=== PATIENT | female | born 1955 | race Caucasian/White ===

== ENCOUNTER 2022-01-31 10:45 | Inpatient (IN) | payer OTHER ==
[2022-01-31] MEDS ORDERED: LEVALBUTEROL 1.25 MG/3 ML NEB ONE (11:09)
[2022-01-31] MEDS ORDERED: IPRATROPIUM BROM 0.5MG/2.5ML ONE ×2 (11:09→20:31)
[2022-01-31] MEDS ORDERED: Magnesium Sulfate 2gm IVPB 2 G/50 ML BAG IV ONE (11:09)
[2022-01-31] MEDS ORDERED: METHYLPREDNISOLONE 125 MG INJ ONE (11:09)
[2022-01-31 11:35] LABS: Absolute Lymphocytes (CBC) 1.7 K/uL (0.7-4.9); Hematocrit 34.3 % (36.0-45.0); Lymphocytes % 15.7 % (15.3-44.8); MCV 89.9 fL (80-100); MPV 9.4 fL (7.6-11.3); RBC Red Blood Cell Count 3.81 M/uL (3.86-4.86)
[2022-01-31 11:37] LABS: Protime INR 1.04
[2022-01-31 11:46] LABS: Blood O2 Saturation 96.3 % (92-98.5)
[2022-01-31 11:47] LABS: Arterial Blood Carboxyhemoglob 0.5 % (0-1.5)
[2022-01-31 11:48] LABS: Blood Gas Oxyhemoglobin 94.8 % (94-97)
--- NOTE | 2022-01-31 11:58 | ER ---
Nurse's Notes [facility] Name: Katelyn Gregory Age: 66 yrs Sex: Female : 1955 Arrival Date: 01/31/2022 Time: 10:48 Bed 23 Private MD: Diagnosis: Shortness of breath;Acute respiratory failure;Subsequent non-ST elevation (NSTEMI) myocardial infarction Presentation: 01/31 10:53 Chief complaint: EMS states: called us because the patient was having em6 difficulty breathing. the states she usually on 3L of oxygen, but yesterday he increased it to 5L. when we got there she was using a NRB. NKA, HX of COPD DM. BP 121/86 HR 156. Coronavirus screen:. Ebola Screen: Patient negative for fever greater than or equal to 101.5 degrees Fahrenheit, and additional compatible Ebola Virus Disease symptoms. Initial Sepsis Screen:. Initial Sepsis Screen: Does the patient meet any 2 criteria? RR > 20 per min. Mean Arterial Pressure (MAP) < 65. Yes Does the patient have a suspected source of infection? No. Patient's initial sepsis screen is negative. Risk Assessment: Do you want to hurt yourself or someone else? Patient reports no desire to harm self or others. Onset of symptoms was January 31, 2022. 10:53 Method Of Arrival: EMS: [facility] em6 10:53 Acuity: SHERON 3 em6 Triage Assessment: 11:33 General: Appears uncomfortable, Behavior is cooperative. Respiratory: Reports shortness em6 of breath at rest on exertion labored breathing Onset: The symptoms/episode began/occurred the patient has severe shortness of breath. Historical: - Allergies: 11:00 No Known Allergies; em6 - PMHx: 11:00 Diabetes mellitus; Chronic obstructive lung disease; em6 - Immunization history:: Client reports receiving the 2nd dose of the Covid vaccine. - Social history:: Smoking status: Patient/guardian denies using tobacco products. Screenin:27 Abuse screen: Denies threats or abuse. Nutritional screening: No deficits noted. em6 Tuberculosis screening: No symptoms or risk factors identified. Fall Risk IV access (20 points). Ambulatory Aid- Crutches/Cane/Walker (15 pts). Gait- Weak (10 pts.). Mental Status- Oriented to own ability (0 pts). Total Castro Fall Scale indicates Low Risk Score (25-44 pts). Fall prevention measures have been instituted. Side Rails Up X 2 Placed close to Nursing Station Frequent Obs/Assesments occuring Family Present and informed to notify staff if they need to leave bedside As available Patient and Family Educated on Fall Prevention Program and strategies. Assessment: 11:11 General: Appears in no apparent distress. uncomfortable, Behavior is cooperative. Pain: em6 Denies pain. Neuro: Hernandez Agitation-Sedation Scale (RASS): 0 - Alert and Calm Level of Consciousness is awake, alert, obeys commands, Oriented to person, place, time, situation. Cardiovascular: Reports chest pain, shortness of breath, Heart tones present Patient's skin is warm and dry. Rhythm is sinus tachycardia. Cardiovascular:. Respiratory: Airway is patent Respiratory effort is even, labored, with retractions, using tripod position, Respiratory pattern is symmetrical, tachypnea Breath sounds with wheezes bilaterally. GI: No signs and/or symptoms were reported involving the gastrointestinal system. : No signs and/or symptoms were reported regarding the genitourinary system. EENT: No signs and/or symptoms were reported regarding the EENT system. Derm: No signs and/or symptoms reported regarding the dermatologic system. Derm:. Musculoskeletal: No signs and/or symptoms reported regarding the musculoskeletal system. Musculoskeletal: Swelling present in right leg and left leg. 14:36 Reassessment: Pt refused recollect on blood cultures. jl7 Vital Signs: 10:53 BP 133 / 67; Pulse 143; Resp 30; Temp 97; Pulse Ox 100% on 3 lpm NC; Weight 77.11 kg; em6 Height 5 ft. 2 in. (157.48 cm); Pain 0/10; 11:00 BP 133 / 67; Pulse 173; Resp 30; Temp 97; Pulse Ox 100% on 3 lpm NC; Weight 77.11 kg; em6 Height 5 ft. 2 in. (157.48 cm); 11:10 BP 147 / 65; Pulse 122; Resp 25; Pulse Ox 98% on 40% BiPAP; jl7 12:09 BP 106 / 53; Pulse 103; Resp 21; Pulse Ox 100% on BiPAP; jl7 13:15 BP 123 / 72; Pulse 100; Resp 24; Pulse Ox 100% on 40% BiPAP; jl7 14:00 BP 129 / 82; Pulse 101; Resp 23; Pulse Ox 100% ; jl7 11:00 Body Mass Index 31.09 (77.11 kg, 157.48 cm) em6 ED Course: 10:48 Patient arrived in ED. ms3 10:49 Nadeem Mosher DO is Attending Physician. ms3 10:57 Idania Lua, RN is Primary Nurse. jl7 10:59 Triage completed. em6 11:28 XRAY Chest (1 view) In Process Unspecified. EDMS 11:30 Initial lab(s) drawn, by ED staff, sent to lab. EKG done, by ED staff, reviewed by rhianna Mosher DO COVID swab sent to lab. Maintain EMS IV. Dressing intact. Good blood return noted. Site clean \T\ dry. Gauge \T\ site: 20 Left AC. 11:33 Arm band placed on right wrist. em6 11:34 Patient has correct armband on for positive identification. Placed in gown. Bed in low em6 position. Call light in reach. Side rails up X2. Adult w/ patient. legal officer on. Pulse ox on. NIBP on. Warm blanket given. 11:57 Alonso Boyce MD is Hospitalizing Provider. ms3 14:15 First set of blood cultures drawn by me. jl7 14:36 Second set of blood cultures drawn by me. jl7 17:56 No provider procedures requiring assistance completed. Patient admitted, IV remains in jl7 place. intact, No redness/swelling at site. 19:23 Primary Nurse role handed off by Idania Lua, RN mw2 19:23 role handed off by Kyra Kraft, VERO mw2 20:14 Radiology exam delayed due to respiratory not available, RN to call to see if kk6 respiratory needed for transport of patient. 21:21 Hamida Cooley, VERO is Primary Nurse. ke1 Administered Medications: 11:06 Drug: SOLU-Medrol (methylPrednisoLONE) 125 mg Route: IVP; Site: left antecubital; jl7 17:53 Follow up: Response: No adverse reaction jl7 11:09 Not Given (Other Intervention Used): Albuterol 2.5 mg Inhalation every 20 minutes x3 jl7 11:09 Drug: AtroVENT (ipratropium) Aerosol 0.5 mg Route: Inhalation; jl7 17:54 Follow up: Response: No adverse reaction jl7 11:09 Drug: Magnesium Sulfate 2 grams Route: IVPB; Infused Over: 2 hrs; Site: left [facility] antecubital; 12:10 Follow up: Response: No adverse reaction; IV Status: Completed infusion jl7 11:09 Drug: Xopenex (levalbuterol) (3) 1.25 mg Route: Inhalation; jl7 17:54 Follow up: Response: No adverse reaction jl7 13:03 Drug: Aspirin 325 mg Route: PO; jl7 17:53 Follow up: Response: No adverse reaction jl7 15:37 Drug: Lovenox (enoxaparin) 1 mg/kg Route: Sub-Q; Site: abdomen; jl7 17:53 Follow up: Response: No adverse reaction jl7 15:42 Drug: Rocephin (cefTRIAXone) 1 grams Route: IV; Rate: calculated rate; Site: left [facility] antecubital; 15:45 Follow up: Response: No adverse reaction; IV Status: Completed infusion jl7 15:45 Drug: AZITHromycin 500 mg Route: IVPB; Infused Over: 1 hrs; Site: left antecubital; jl7 16:45 Follow up: Response: No adverse reaction; IV Status: Completed infusion jl7 Medication: 11:35 VIS not applicable for this client. em6 Outcome: 11:58 Decision to Hospitalize by Provider. ms3 17:56 Admitted to ER Hold. Please see [facility] for further documentation. jl7 17:56 Condition: stable 17:56 Discharge instructions given to patient, family, Instructed on the need for admit, Demonstrated understanding of instructions. 23:27 Patient left the ED. mw2 Signatures: Dispatcher [employer] EDMS Idania Lua RN RN jl7 Gabrielle Wheeler mw2 Nadeem Mosher DO DO ms3 Lisseth Blackwood kk6 Hamida Cooley RN RN ke1 Kyra Kraft RN RN em6
--- NOTE | 2022-01-31 11:59 | EDPHYS ---
Physician Documentation [facility] Name: Katelyn Gregory Age: 66 yrs Sex: Female : 1955 Arrival Date: 01/31/2022 Time: 10:48 Bed 23 Private MD: ED Physician Nadeem Mosher HPI: 01/31 11:00 This 66 yrs old Female presents to ER via EMS with complaints of Shortness Of Breath. ms3 11:00 The patient has shortness of breath at rest. Onset: The symptoms/episode began/occurred ms3 1 week(s) ago. Duration: The symptoms are continuous. The patient's shortness of breath is aggravated by nothing, is alleviated by nothing. Associated signs and symptoms: Pertinent positives: chest pain, Pertinent negatives: nausea, vomiting. Severity of symptoms: At their worst the symptoms were severe in the emergency department the symptoms are unchanged Pain is currently a 8 / 10. Patient reports worsening SOB for 1 week. Patient also notes her heart is racing and she rates the discomfort an 8/10. Historical: - Allergies: 11:00 No Known Allergies; em6 - PMHx: 11:00 Diabetes mellitus; Chronic obstructive lung disease; em6 - Immunization history:: Client reports receiving the 2nd dose of the Covid vaccine. - Social history:: Smoking status: Patient/guardian denies using tobacco products. ROS: 11:00 Constitutional: Negative for fever, and chills. Neck: Negative for injury, pain, and ms3 swelling. 11:00 Abdomen/GI: Negative for abdominal pain, nausea, vomiting, diarrhea, and constipation, MS/Extremity: Negative for injury and deformity, Neuro: Negative for headache, weakness, numbness, tingling. 11:00 Cardiovascular: Positive for chest pain. 11:00 Respiratory: Positive for shortness of breath. 11:00 All other systems are negative. Exam: 10:53 ECG was reviewed by the Attending Physician. ms3 11:00 Head/Face: Normocephalic, atraumatic. Eyes: Pupils equal round and reactive to light, ms3 extra-ocular motions intact. Lids and lashes normal. Conjunctiva and sclera are non-icteric and not injected. Periorbital areas with no swelling, redness, or edema. Neck: Trachea midline, no cervical lymphadenopathy. Supple, full range of motion without nuchal rigidity, or vertebral point tenderness. No Meningismus. Chest/axilla: Normal chest wall appearance and motion. Nontender with no deformity. 11:00 Abdomen/GI: Soft, non-tender, with normal bowel sounds. No distension or tympany. No guarding or rebound. No evidence of tenderness throughout. Skin: Warm, dry with normal turgor. Normal color with no rashes, no lesions, and no evidence of cellulitis. MS/ Extremity: Pulses equal, no cyanosis. Neurovascular intact. Full, normal range of motion. Psych: Awake, alert, with orientation to person, place and time. Behavior, mood, and affect are within normal limits. 11:00 Constitutional: The patient appears in obvious distress, moderately distressed, obviously ill, restless. 11:00 Cardiovascular: Rate: tachycardic, Rhythm: regular, Pulses: no pulse deficits are appreciated, Heart sounds: normal. Vital Signs: 10:53 BP 133 / 67; Pulse 143; Resp 30; Temp 97; Pulse Ox 100% on 3 lpm NC; Weight 77.11 kg; em6 Height 5 ft. 2 in. (157.48 cm); Pain 0/10; 11:00 BP 133 / 67; Pulse 173; Resp 30; Temp 97; Pulse Ox 100% on 3 lpm NC; Weight 77.11 kg; em6 Height 5 ft. 2 in. (157.48 cm); 11:10 BP 147 / 65; Pulse 122; Resp 25; Pulse Ox 98% on 40% BiPAP; jl7 12:09 BP 106 / 53; Pulse 103; Resp 21; Pulse Ox 100% on BiPAP; jl7 13:15 BP 123 / 72; Pulse 100; Resp 24; Pulse Ox 100% on 40% BiPAP; jl7 14:00 BP 129 / 82; Pulse 101; Resp 23; Pulse Ox 100% ; jl7 11:00 Body Mass Index 31.09 (77.11 kg, 157.48 cm) em6 MDM: 10:48 Patient medically screened. ms3 11:00 Differential diagnosis: CHF exacerbation, Chronic Obstructive Pulmonary Disease ms3 Myocardial Infarction pneumonia, pulmonary edema. 12:53 Physician consultation: Soy Henriquez MD and will see patient in ED, would like ms3 medications started, Lovenox. 13:04 Data reviewed: vital signs, nurses notes, lab test result(s), EKG, radiologic studies, ms3 and as a result, I will admit patient. Counseling: I had a detailed discussion with the patient and/or guardian regarding: the historical points, exam findings, and any diagnostic results supporting the discharge/admit diagnosis, lab results, radiology results, the need for further work-up and treatment in the hospital. ED course: Patient has improved while on bipap. Dr Henriquez saw patient in the ED.. 15:22 ED course: Patient meets severe sepsis criteria at this time. A. PNA B. HR>90, RR > 20, ms3 C. BiPAP, LA > 2. Blood Cultures ordered.. 15:24 ED course: Rocephin and Azithromycin ordered for abx. Second LA pending at this time.. ms3 01/31 10:50 Order name: Basic Metabolic Panel; Complete Time: 12:39 ms3 01/31 10:50 Order name: CBC with Diff; Complete Time: 12:24 ms3 01/31 10:50 Order name: Magnesium; Complete Time: 12:39 ms3 01/31 10:50 Order name: NT PRO-BNP; Complete Time: 12:39 ms3 01/31 10:50 Order name: PT-INR; Complete Time: 12:24 ms3 01/31 10:50 Order name: Troponin HS; Complete Time: 12:39 ms3 01/31 10:54 Order name: ABG; Complete Time: 12:24 ms3 01/31 11:56 Order name: SARS-COV-2 RT PCR (Document "Date of Onset" if Symptomatic) ms3 01/31 12:28 Order name: SARS RAPID; Complete Time: 13:23 jl7 01/31 13:25 Order name: Blood Culture Adult (2) ms3 01/31 13:25 Order name: Lactate; Complete Time: 15:12 ms3 01/31 13:25 Order name: Ptt, Activated; Complete Time: 15:12 ms3 01/31 13:25 Order name: LFT's ms3 01/31 13:59 Order name: Urinalysis EDMS 01/31 10:50 Order name: XRAY Chest (1 view); Complete Time: 13:23 ms3 01/31 13:38 Order name: BIPAP ms3 01/31 14:01 Order name: Basic Metabolic Panel EDMS 01/31 14:01 Order name: Basic Metabolic Panel EDMS 01/31 14:01 Order name: CBC with Automated Diff EDMS 01/31 14:01 Order name: CBC with Automated Diff EDMS 01/31 18:44 Order name: Lactate EDMS 01/31 19:21 Order name: Troponin High Sensitivity EDMS 01/31 21:08 Order name: ABG Arterial Blood Gas EDMS 01/31 21:18 Order name: CT EDMS 01/31 10:50 Order name: EKG; Complete Time: 10:51 ms3 01/31 10:50 Order name: Cardiac monitoring; Complete Time: 10:57 ms3 01/31 10:50 Order name: EKG - Nurse/Tech; Complete Time: 10:57 ms3 01/31 10:50 Order name: IV Saline Lock; Complete Time: 11:10 ms3 01/31 10:50 Order name: Labs collected and sent; Complete Time: 11:27 ms3 01/31 10:50 Order name: O2 Per Protocol; Complete Time: 10:57 ms3 01/31 10:50 Order name: O2 Sat Monitoring; Complete Time: 10:57 ms3 01/31 13:25 Order name: Accucheck; Complete Time: 15:37 ms3 01/31 13:25 Order name: IV Saline Lock - Large Bore; Complete Time: 15:37 ms3 01/31 13:59 Order name: Heart Healthy EDMS 01/31 17:24 Order name: Labs - recollect needed: recollect lactate,label tube; Complete Time: 18:17 bd EC:53 Rate is 122 beats/min. Rhythm is regular. QRS [place] is Normal. [place] interval is normal. ms3 Clinical impression: Sinus tachycardia. Interpreted by me. Reviewed by me. Administered Medications: 11:06 Drug: SOLU-Medrol (methylPrednisoLONE) 125 mg Route: IVP; Site: left antecubital; jl7 17:53 Follow up: Response: No adverse reaction 11: Not Given (Other Intervention Used): Albuterol 2.5 mg Inhalation every 20 minutes x3 11:09 Drug: AtroVENT (ipratropium) Aerosol 0.5 mg Route: Inhalation; jl7 17:54 Follow up: Response: No adverse reaction 11:09 Drug: Magnesium Sulfate 2 grams Route: IVPB; Infused Over: 2 hrs; Site: left jl7 antecubital; 12:10 Follow up: Response: No adverse reaction; IV Status: Completed infusion jl7 11:09 Drug: Xopenex (levalbuterol) (3) 1.25 mg Route: Inhalation; jl7 17:54 Follow up: Response: No adverse reaction jl7 13:03 Drug: Aspirin 325 mg Route: PO; jl7 17:53 Follow up: Response: No adverse reaction jl7 15:37 Drug: Lovenox (enoxaparin) 1 mg/kg Route: Sub-Q; Site: abdomen; jl7 17:53 Follow up: Response: No adverse reaction jl7 15:42 Drug: Rocephin (cefTRIAXone) 1 grams Route: IV; Rate: calculated rate; Site: left jl antecubital; 15:45 Follow up: Response: No adverse reaction; IV Status: Completed infusion jl7 15:45 Drug: AZITHromycin 500 mg Route: IVPB; Infused Over: 1 hrs; Site: left antecubital; jl7 16:45 Follow up: Response: No adverse reaction; IV Status: Completed infusion jl7 Disposition: 13:04 Critical Care:. ms3 Disposition Summary: 01/31/22 11:58 Hospitalization Ordered Hospitalization Status: Inpatient Admission ms3 Provider: Alonso Boyce ms3 Condition: Stable ms3 Problem: new ms3 Symptoms: are unchanged ms3 Bed/Room Type: Standard ms3 Location: Intensive Care Unit(01/31/22 20:38) Room Assignment: 1-(01/31/22 20:38) Diagnosis - Shortness of breath ms3 - Acute respiratory failure ms3 - Subsequent non-ST elevation (NSTEMI) myocardial infarction ms3 Forms: - Medication Reconciliation Form ms3 - SBAR form ms3 Critical care time excluding procedures: 13:04 Critical care time: Bedside Care: 30 minutes, Consultation: 10 minutes, Family ms3 Intervention: 10 minutes. Total time: 50 minutes Signatures: Dispatcher [employer] EDNatali Oneill Martha RN RN Idania Kwok RN RN jl7 Nadeem Mosher DO DO ms3 Kyra Kraft RN RN em6 Corrections: (The following items were deleted from the chart) 14:23 11:58 Telemetry/MedSurg (Inpatient) nm3 bd 14:23 11:58 ms3 bd 15:10 14:24 Labs - recollect needed ordered. jl7 15:10 14:44 Labs - recollect needed ordered. bd jl7 20:38 14:[address] [facility] ER HOLD bd mw :38 14:23 ERHOLD- bd mw
[2022-01-31 12:30] LABS: Magnesium 2.4 mg/dL (1.8-2.4); Potassium 3.9 mmol/L (3.5-5.1)
[2022-01-31 12:38] LABS: Troponin High Sensitivity 1209.6 pg/mL (<58.9)
[2022-01-31] MEDS ORDERED: ASPIRIN 81 MG CHEWABLE TABLET ONE (13:07)
[2022-01-31 13:10] LABS: SARS-CoV-2 Antigen Rapid Res Negative (Negative)
--- NOTE | 2022-01-31 13:12 | RAD REPORT ---
EXAM DESCRIPTION: RAD - Chest Single View - 01/31/2022 11:26 am CLINICAL HISTORY: shortness of breath COMPARISON: None TECHNIQUE: AP portable chest image was obtained 01/31/2022 11:26 am . FINDINGS: Interstitial markings are prominent with the baseline unknown. This could all be chronic f ibrotic lung change. Superimposed interstitial infiltrate or edema would be possible. No consolidatio n or mass lesion identifiable. Hilar regions are within range of normal. Trachea is midline. Heart and vasculature are normal. No measurable pleural effusion and no pneumothorax. No acute bony abnormality seen. No acute aortic findings suspected. IMPRESSION: No focal mass or consolidation. Prominent interstitial markings throughout both lung corona slightly worse in the lower right lung fi eld. As a baseline study, the interstitial pattern could reflect chronic fibrosis, interstitial infiltrate , interstitial edema or a combination.
[2022-01-31] MEDS ORDERED: ONDANSETRON 4 MG/2 ML VIAL IV PRN (13:55)
[2022-01-31] MEDS ORDERED: HYDROCODONE/APAP 5/325 MG TAB PO PRN (13:59)
[2022-01-31] MEDS: ALBUTEROL 2.5 MG/3 ML NEB SOL NEB SCH ×2 (14:00→20:35)
[2022-01-31] MEDS: IPRATROPIUM BROM 0.5MG/2.5ML NEB SCH ×2 (14:00→20:35)
--- NOTE | 2022-01-31 14:02 | P.HP ---
Certification for Inpatient Patient admitted to: Inpatient With expected LOS: >2 Midnights Patient will require the following post-hospital care: None Practitioner: I am a practitioner with admitting privileges, knowledge of patient current condition, hospital course, and medical plan of care. Services: Services provided to patient in accordance with Admission requirements found in Title 42 Section 412.3 of the Code of Federal Regulations <WoodyguyXin russell Janelle - Last Filed: 01/31/22 17:49> Patient History Date of Service: 01/31/22 Reason for admission: Shortness of breath or History of Present Illness: Patient is a 66-year-old female with a past medical history significant for COPD, DM2, chronic respiratory failure who presents with complaint of shortness of breath. Patient is on home O2 therapy at 3.5 L/min. Patient reported that she went for stress test yesterday with her supervisor customer services and on her way to the procedure her portable oxygen ran out of battery. After changing the battery the portable oxygen was not delivering O2 appropriately. Patient had to go to the ER at the hospital where her supervisor customer services is located and she was placed on oxygen. Patient successfully carried out her stress test. Patient reported that when she got home she started having worsening shortness of breath and this morning her O2 requirement increased to 5 L/min. Patient reported associated signs and symptoms of chest pain rated as 8/10 and described as tight in quality. Patient denies any other signs and symptoms. Symptoms are aggravated by exertion and relieved by nothing. Patient decided to present to the hospital due to worsening symptoms. Home medications list reviewed: No - Past Medical/Surgical History -: COPD -: Chronic respiratory failure -: DM2 Past Surgical History: Reviewed- Non-Contributory - Family History Family History: Reviewed- Non-Contributory - Social History Smoking Status: Unknown if ever smoked Alcohol use: No CD- Drugs: No Place of Residence: Home <Xin Pineda - Last Filed: 01/31/22 17:49> Date of Service: 01/31/22 <Alonso Boyce - Last Filed: 01/31/22 19:13> Allergies No Known Allergies Allergy (Unverified 01/31/22 16:00) Review of Systems General: Unremarkable Eyes: Unremarkable ENT: Unremarkable Respiratory: Shortness of Breath, SOB with Excertion Cardiovascular: Chest Pain Gastrointestinal: Unremarkable Genitourinary: Unremarkable Musculoskeletal: Unremarkable Integumentary: Unremarkable Neurological: Unremarkable Lymphatics: Unremarkable <Xin Pineda - Last Filed: 01/31/22 17:49> Physical Examination - Physical Exam General: Alert, Oriented x3, Acute distress HEENT: Atraumatic, Normocephalic, PERRLA Neck: Supple, 2+ carotid pulse no bruit, JVD not distended Respiratory: Diminished, Expiratory wheezes, Inspiratory wheezes Cardiovascular: No edema, Normal pulses, Regular rate/rhythm Capillary refill: <2 Seconds Gastrointestinal: Normal bowel sounds, Soft and benign Musculoskeletal: No clubbing, No swelling, No erythema, No tenderness Integumentary: No rashes, No breakdown, No tenderness/swelling Neurological: Normal speech, Normal tone Lymphatics: No axilla or inguinal lymphadenopathy - Studies Laboratory Data (last 24 hrs) 01/31/22 11:24: PT 11.4, INR 1.04 01/31/22 11:24: WBC 10.90, Hgb 11.3 L, Hct 34.3 L, Plt Count 469 H 01/31/22 11:24: Sodium 139, Potassium 3.9, BUN 18, Creatinine 0.89, Glucose 162 H, Magnesium 2.4 <Xin Pineda - Last Filed: 01/31/22 17:49> - Studies Laboratory Data (last 24 hrs) 01/31/22 11:24: PT 11.4, INR 1.04 01/31/22 11:24: WBC 10.90, Hgb 11.3 L, Hct 34.3 L, Plt Count 469 H 01/31/22 11:24: Sodium 139, Potassium 3.9, BUN 18, Creatinine 0.89, Glucose 162 H, Magnesium 2.4 <Alonso Boyce - Last Filed: 01/31/22 19:13> Assessment and Plan - Plan --Acute on chronic COPD exacerbation. Patient placed on BiPAP therapy. Continue steroids and neb treatment with albuterol\Atrovent. Continue supportive care. --Suspected pneumonia. Noted on chest x-ray. Patient placed on antibiotics. Continue current treatment regimen. --Acute on chronic respiratory failure with hypoxia and hypercapnia. Continue BiPAP therapy and current treatment regimen. --DM2. BS monitoring with sliding scale insulin. --Anemia of chronic disease. H&H stable. We will continue monitor hemoglobin. --Chest pain. Troponin elevated. We will continue to trend troponin levels. Cardiology consulted. Echocardiogram pending. Patient placed on weight-base Lovenox subQ. Further management per supervisor customer services --Elevated BNP. Echocardiogram pending to assess LV\valvular function and wall motion. Patient placed on Lasix. Further management per supervisor customer services. --Respiratory acidosis. Continue BiPAP therapy. We will continue to monitor ABG levels. -- CKD 2. Stable. We will continue to monitor renal functions. --Lactic acidosis. Likely secondary to COPD exacerbation\pneumonia. Continue antibiotics. Will reassess lactic acid levels. --Hypotension. Blood pressure improving. We will continue to monitor blood pressure levels -- DVT prophylaxis with Lovenox subQ. Discharge Plan: Home Plan to discharge in: Greater than 2 days - Advance Directives Does patient have a Living Will: No Does patient have a Durable POA for Healthcare: No - Code Status/Comfort Care Code Status Assessed: Yes Code Status: Full Code Physician Review: Patient Assessed, Agree with Above Assessment and Plan Critical Care: No <Xin Pineda - Last Filed: 01/31/22 17:49> Physician Review: Patient Assessed, Agree with Above Assessment and Plan Physician Review Additional Text: Additional diagnoses: # Severe Sepsis secondary to RLL Community-Acquired Pneumonia # Suspected NSTEMI - Serial troponin, TTE, continue enoxaparin - Appreciate Cardiology recommendations Alonso Boyce M.D. <Alonso Boyce - Last Filed: 01/31/22 19:13>
[2022-01-31] MEDS ORDERED: ENOXAPARIN 80 MG/0.8 ML SQ ONE (15:20)
[2022-01-31] MEDS ORDERED: LORazepam 2 MG/ML VIAL IV PRN (15:30)
--- NOTE | 2022-01-31 15:39 | CON ---
Date of Consultation: 01/31/2022 Reason For Consultation: Elevated troponin. History Of Present Illness: This is a 66-year-old female, history of COPD that is advanced and she h as a longstanding smoking history, she quit in the recent past. She follows up with [facility] at [facility] in [place] and a stress test was done on her yesterday. She presented with shortness of b reath, wheezing, and respiratory distress requiring BiPAP and on initial presentation, heart rate was in the 120s to 130s and denies having any chest pain at the present time. Past Medical History: Significant for COPD, diabetes. Medications: Refer to reconciliation sheet for detailed list. Allergies: NO KNOWN DRUG ALLERGIES. Family History: No premature coronary artery disease or cancer. Social History: She is an ex-smoker. Does not drink or use any drugs. Review of Systems: All systems reviewed and they were negative except for mentioned in HPI. Physical Examination: Vital Signs: Reviewed. Head and Neck: Pupils are equal, reactive to light. Intact eye movements. No JVD. No cervical lym phadenopathy. Neck is supple. Thyroid is not enlarged. Lungs: Clear to auscultation bilaterally. No rhonchi, wheezing, or crackles. No accessory muscle u se. Heart: Regular rate and rhythm. No extra sounds. Abdomen: Soft, nontender. Bowel sounds positive. No organomegaly. No masses or hernia. No rigidi ty or rebound. Extremities: No clubbing or cyanosis. Intact pulses. Skin: No rash. Neurologic: Alert, awake, oriented x3. No acute focal deficits appreciated. Investigations: Troponin is 1209, creatinine 0.89, hemoglobin is 11.3 and the chest x-ray, increase of interstitial markings bilaterally. Assessment And Recommendations: 1.Elevated troponin. This could be demand versus acute non-ST elevation myocardial infarction. At this point, she is chest pain free. Recommend to start Lovenox 1 mg/kg subcu q.12 hours, baby aspiri n 81 mg and trend troponins and please obtain echocardiogram once her chronic obstructive pulmonary d isease status is under control and the patient is able to lie flat, recommend to do coronary angiogra m. Discussed that with her. 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 Further recommendations will follow after the patient has echos done and 2 more sets of tro ponins are drawn. 2.Acute hypoxic respiratory failure due to chronic obstructive pulmonary disease exacerbation, on Bi PAP and she is getting stable. SR/MODL Voice ID: [id number] Report ID: [id number]
[2022-01-31 15:42] LABS: ALT/SGPT 27 U/L (12-78); AST/SGOT 34 U/L (15-37); Albumin 3.3 g/dL (3.4-5.0); Alkaline Phosphatase 71 U/L (45-117); Bilirubin Total 0.3 mg/dL (0.2-1.0); Protein, Total 7.6 g/dL (6.4-8.2)
[2022-01-31 15:43] LABS: Bilirubin Direct < 0.1 mg/dL (0-0.2)
[2022-01-31] MEDS ORDERED: CEFTRIAXONE 1000 MG/VIAL ONE (15:49)
[2022-01-31] MEDS ORDERED: AZITHROMYCIN 500 MG INJ IVPB ONE (15:49)
[2022-01-31] MEDS ORDERED: NA CHLORIDE 0.9% 250 ML ONE (15:50)
[2022-01-31] MEDS ORDERED: ALPRAZOLAM 0.25 MG TABLET PO ONE (15:55)
[2022-01-31] MEDS ORDERED: Levofloxacin500mg IV 500 MG/100 ML BAG IV SCH ×2 (16:00→17:00)
[2022-01-31] MEDS ORDERED: ALPRAZOLAM 0.25 MG TABLET ONE (16:30)
[2022-01-31] MEDS: METHYLPREDNISOLONE 40 MG INJ IV SCH (17:00)
[2022-01-31] MEDS ORDERED: METHYLPREDNISOLONE 40 MG INJ ONE (17:01)
[2022-01-31] MEDS ORDERED: Levofloxacin500mg IV 500 MG/100 ML BAG IV ONE (17:02)
[2022-01-31] MEDS ORDERED: GLUCAGON 1 MG/VIAL IM PRN (17:34)
[2022-01-31] MEDS ORDERED: D10W 250 ML BAG IV PRN (17:37)
[2022-01-31] MEDS ORDERED: ALBUTEROL 2.5 MG/3 ML NEB SOL ONE (20:31)
[2022-01-31] MEDS: INSULIN -REGULAR HUMAN 50 UNIT/0.5 ML ML SQ SCH (21:00)
[2022-01-31 21:02] LABS: Arterial Blood Carboxyhemoglob 0.8 % (0-1.5); Blood Gas Oxyhemoglobin 95.6 % (94-97); Blood O2 Saturation 97.6 % (92-98.5)
--- NOTE | 2022-01-31 21:16 | RAD REPORT ---
EXAM DESCRIPTION: CT - Chest For Pe Angio - 01/31/2022 9:02 pm CLINICAL HISTORY: Chest pain COMPARISON: None. TECHNIQUE: Dynamically enhanced axial 3 mm thick images of the chest were obtained during administra tion of <100> mL Isovue 370 IV contrast. Coronal and oblique reconstruction images were generated and reviewed. Exam utilizes a protocol for optimal evaluation of pulmonary arterial tree. Maximum intensity projections 3D imaging was utilized All CT scans are performed using dose optimization technique as appropriate and may include automated exposure control or mA/KV adjustment according to patient size. FINDINGS: Small amount of thrombus within a subsegmental right lower lobe pulmonary artery. No addit ional thrombus is seen. A thoracic aortic aneurysm is not noted. A pleural effusion is not seen. A pericardial effusion is not seen. Mild patchy right upper lobe opacity. Moderate COPD. IMPRESSION: Small embolus subsegmental right lower lobe pulmonary artery COPD Mild patchy right upper lobe opacity may represent pneumonitis or pneumonia
[2022-02-01] MEDS: FUROSEMIDE 20 MG/ 2ML VIAL IV SCH ×2 (00:42→09:00)
[2022-02-01] MEDS: METHYLPREDNISOLONE 40 MG INJ IV SCH ×2 (00:42→09:00)
[2022-02-01] MEDS: ENOXAPARIN 80 MG/0.8 ML SQ SCH ×2 (00:43→09:00)
[2022-02-01] MEDS: ALBUTEROL 2.5 MG/3 ML NEB SOL NEB SCH ×4 (01:30→21:40)
[2022-02-01] MEDS: IPRATROPIUM BROM 0.5MG/2.5ML NEB SCH ×4 (01:30→21:40)
[2022-02-01 05:26] VITALS: BMI 30.7
[2022-02-01 07:24] LABS: Potassium 4.6 mmol/L (3.5-5.1)
[2022-02-01] MEDS: INSULIN -REGULAR HUMAN 50 UNIT/0.5 ML ML SQ SCH ×4 (07:30→21:00)
[2022-02-01 07:50] LABS: Absolute Lymphocytes (CBC) 0.8 K/uL (0.7-4.9); Hematocrit 33.2 % (36.0-45.0); Lymphocytes % 20.9 % (15.3-44.8); MCV 91.6 fL (80-100); MPV 9.5 fL (7.6-11.3); RBC Red Blood Cell Count 3.62 M/uL (3.86-4.86)
[2022-02-01] MEDS: ATORVASTATIN 10 MG TAB PO SCH (09:00)
[2022-02-01] MEDS: ASPIRIN EC 81 MG TAB PO SCH (09:00)
--- NOTE | 2022-02-01 09:11 | P.PN ---
Subjective Date of Service: 02/01/22 Chief Complaint: Shortness of breath Subjective: No new changes No acute events overnight. She reports persistent shortness of breath and dyspnea, which is alleviated with the BiPAP mask. She denies any chest pain or palpitations. Review of Systems 10-point ROS is otherwise unremarkable Respiratory: Cough, Shortness of Breath Physical Examination - Vital Signs Temperature: 97 F Blood Pressure: 118/61 Pulse: 95 Respirations: 21 Pulse Ox (%): 100 - Physical Exam General: Alert, In no apparent distress, Oriented x3 HEENT: Atraumatic, PERRLA, Mucous membr. moist/pink, EOMI, Sclerae nonicteric Neck: Supple, JVD not distended Respiratory: Diminished, Expiratory wheezes (faint), Inspiratory wheezes (faint), Rhonchi/gurgles, Other (SpO2 100 % on BiPAP (FiO2 40 %)) Cardiovascular: No edema, Regular rate/rhythm, Normal S1 S2, No gallops, No rubs, No murmurs, Edema (trace-1+ bilateral) Gastrointestinal: Normal bowel sounds, Soft and benign, Non-distended, No tenderness, No rebound, No guarding Musculoskeletal: No clubbing Integumentary: No rashes Neurological: Normal speech, Cranial nerves 3-12 intact, Normal affect - Studies Laboratory Data (last 24 hrs) 01/31/22 11:24: PT 11.4, INR 1.04 01/31/22 11:24: WBC 10.90, Hgb 11.3 L, Hct 34.3 L, Plt Count 469 H 01/31/22 11:24: Sodium 139, Potassium 3.9, BUN 18, Creatinine 0.89, Glucose 162 H, Magnesium 2.4 Assessment And Plan - Plan # Severe Sepsis likely secondary to Right Upper Lobe Community-Acquired Pneumonia She met SIRS criteria based on HR > 90 bpm and RR > 20 breaths/min, and the suspected source is pneumonia. Severe sepsis is suspected due to concern for tissue hypoperfusion/organ dysfunction based on acute respiratory failure requiring CPAP/BiPAP and lactic acid > 2 mmol/L. - Sepsis order set was initiated - Lactate trend was 2.2 -> 1.4 - Blood cultures drawn before antibiotics were given - Broad spectrum antibiotics started: Levofloxacin - In regards to fluids: - 30 mL/kg of IV fluids was not administered given SBP > 90, MAP > 65, lactic acid < 4 # Acute Hypercapnic Respiratory Failure - likely secondary to Acute Chronic Obstructive Pulmonary Disease Exacerbation +/- Acute Right Lower Lobe Subsegmental Pulmonary Embolism # Concern for Acute Congestive Heart Failure (Unknown Ejection Fraction) Currently, she is on BiPAP, with improvement of her SpO2 readings to 100 %. - Evaluation thus far: - Procalcitonin = pending - Initial ABG = pH 7.19, PCO2 90.4, PO2 111.0 - Chest x-ray = "No focal mass or consolidation. Prominent interstitial markings throughout both lung corona slightly worse in the lower right lung field. As a baseline study, the interstitial pattern could reflect chronic fibrosis, interstitial infiltrate, interstitial edema or a combination. " - CT chest angiogram = "Small embolus subsegmental right lower lobe pulmonary artery. COPD. Mild patchy right upper lobe opacity may represent pneumonitis or pneumonia." - Management plan: - Consulted Pulmonary Medicine - recommendations appreciated - Steroids and bronchodilators per Pulm - Consulted Cardiology and spoke with Dr. Conte - recommendations appreciated - Consulted Respiratory Therapy - Started on enoxaparin 1 mg/kg SQ q12hr - Supplemental oxygen to maintain SpO2 > 92% - Continue levofloxacin - Encourage incentive spirometry once off BiPAP # Suspected Type II Non-ST Segment Elevation Myocardial Infarction (Demand Ischemia) - Consulted Cardiology and spoke with Dr. Conte - recommendations appreciated - EKG reportedly without ischemic changes - Troponin trend: 1209.6 -> 985.5 -> 772.6 - Transthoracic echocardiogram pending - Started on enoxaparin 1 mg/kg SQ q12hr - Continue aspirin + atorvastatin # Type II Diabetes Mellitus - Hgb A1c pending - Correction scale insulin Alonso Boyce M.D. Discharge Plan: Home Plan to discharge in: Greater than 2 days
--- NOTE | 2022-02-01 11:48 | P.CNS ---
Date of Consult: 02/01/22 Reason for Consult: COPD exacerbation Chief Complaint: Shortness of breath History of Present Illness: Patient is 66 years of age with a history of COPD has been on steroids and oxygen pending of worsening dyspnea over the past week was found to have subsegmental emboli and is currently on BiPAP she has been weaned off her steroids by her asbestos cloth inspector patient is stable Allergies No Known Allergies Allergy (Unverified 01/31/22 16:00) Home Medications: Albuterol Sulfate [Albuterol Sulfate Hfa] 1 amp NEB Q4HR 01/31/22 Atorvastatin Calcium 10 mg PO DAILY 01/31/22 Diltiazem Tab [Cardizem Tab] 30 mg PO TID 01/31/22 Fluticasone/Salmeterol [Advair 250-50 Diskus] 1 diskus IH BID 01/31/22 Furosemide 40 mg PO DAILY 01/31/22 Metformin ER [Glucophage ER] 1,000 mg PO DAILY 01/31/22 Tiotropium [place] [Spiriva] 18 mcg IH DAILY 01/31/22 - Past Medical/Surgical History -: COPD -: Chronic respiratory failure -: DM2 - Social History Alcohol use: No CD- Drugs: No Place of Residence: Home Review of Systems 10-point ROS is otherwise unremarkable General: Weakness Respiratory: Shortness of Breath Physical Examination Temp Pulse Resp BP Pulse Ox 97 F 118 H 22 H 107/54 L 99 02/01/22 09:26 02/01/22 10:00 02/01/22 10:00 02/01/22 10:00 02/01/22 10:00 General: Alert, Oriented x3 Respiratory: Clear to auscultation bilaterally, Diminished, Expiratory wheezes Cardiovascular: Regular rate/rhythm, Normal S1 S2, Edema (Patient has lower extremity edema right greater than left) Gastrointestinal: Normal bowel sounds, Soft and benign Musculoskeletal: No clubbing, No swelling Laboratory Data (last 24 hrs) 01/31/22 11:24: Sodium 139, Potassium 3.9, BUN 18, Creatinine 0.89, Glucose 162 H, Magnesium 2.4 - Problems (1) Acute and chronic respiratory failure ([id number]) Current Visit: Yes Status: Acute Plan: Patient is 66 years of age admitted with acute on chronic respiratory failure severe COPD steroid and oxygen dependent minimal subsegmental emboli no evidence of pneumonia blood gases chemistries reviewed CT scan also reviewed no pneumonia noted patient is on Spiriva and Advair at home add spironolactone DC Lasix at sat to 90% changed to p.o. prednisone (2) Pulmonary emboli Current Visit: Yes Status: Acute Plan: Patient has subsegmental pulmonary emboli have lower extremity DVT right leg is more swollen than the left ordered venous Doppler changed to p.o. Xarelto Qualifiers: Pulmonary embolism type: multiple subsegmental (without acute cor pulmonale) Qualified Code(s): I26.94 - Multiple subsegmental pulmonary emboli without acute cor pulmonale
--- NOTE | 2022-02-01 12:13 | PN ---
Date of Progress Note: 02/01/2022 Ms. Gregory is 66, came in with COPD exacerbation, elevated troponin, acute respiratory failure. Dr. Ferro saw the patient. He thought that the elevated troponin was secondary to demand ischemia. Randall russell has a positive pulmonary embolus by CT angiography. Today, she has sinus tachycardia, 99% O2 satur ation on BiPAP. She is on anticoagulation. Again, we think her troponin elevation is secondary to d emand ischemia from pulmonary embolus and hypoxia. Echocardiogram is pending today. She does have a trainmaster in [place], whom she sees on a regular basis. She will see him after she gets discharg ed, but for now anticoagulate. Continue present regimen. Echocardiogram is pending. BITA/EPI Voice ID: [id number] Report ID: [id number]
[2022-02-01 12:45] LABS: Arterial Blood Carboxyhemoglob 1.1 % (0-1.5); Blood Gas Oxyhemoglobin 95.4 % (94-97); Blood O2 Saturation 97.6 % (92-98.5)
[2022-02-01] MEDS: SPIRONOLACTONE 25 MG TABLET PO SCH (13:49)
--- NOTE | 2022-02-01 16:48 | RAD REPORT ---
EXAM DESCRIPTION: US - Extrem Venous W Compress [place] - 02/01/2022 4:33 pm CLINICAL HISTORY: Rule out DVT, bilateral leg pain and swelling COMPARISON: None. TECHNIQUE: Real-time sonographic evaluation of the bilateral lower extremity common femoral, superfi cial femoral, popliteal and posterior tibial veins was performed. FINDINGS: Normal compressibility, flow augmentation, phasic flow and spontaneous flow are identified in the left and right lower extremity common femoral, superficial femoral, popliteal and posterior t ibial veins. No intraluminal filling defects seen. IMPRESSION: No DVT in either lower extremity.
[2022-02-01] MEDS: VERAPAMIL HCL 80 MG TABLET PO SCH (21:00)
[2022-02-01] MEDS: RIVAROXABAN 15 MG TABLET PO SCH (21:04)
[2022-02-01] MEDS: ACETAMINOPHEN 500 MG TAB PO PRN (21:04)
[2022-02-01] MEDS: predniSONE 20 MG TAB PO SCH (21:04)
[2022-02-02] MEDS: ALBUTEROL 2.5 MG/3 ML NEB SOL NEB SCH ×2 (02:25→08:26)
[2022-02-02] MEDS: IPRATROPIUM BROM 0.5MG/2.5ML NEB SCH ×4 (02:25→20:25)
[2022-02-02 05:18] LABS: Absolute Lymphocytes (CBC) 0.5 K/uL (0.7-4.9); Hematocrit 31.6 % (36.0-45.0); Lymphocytes % 9.1 % (15.3-44.8); MCV 90.6 fL (80-100); MPV 9.6 fL (7.6-11.3); RBC Red Blood Cell Count 3.49 M/uL (3.86-4.86)
[2022-02-02 05:27] LABS: Magnesium 2.4 mg/dL (1.8-2.4); Phosphorus 2.7 mg/dL (2.5-4.9); Potassium 3.7 mmol/L (3.5-5.1)
[2022-02-02 05:58] LABS: Arterial Blood Carboxyhemoglob 0.9 % (0-1.5); Blood Gas Oxyhemoglobin 96.4 % (94-97); Blood O2 Saturation 98.4 % (92-98.5)
[2022-02-02] MEDS: VERAPAMIL HCL 80 MG TABLET PO SCH ×3 (07:15→20:43)
[2022-02-02] MEDS: INSULIN -REGULAR HUMAN 50 UNIT/0.5 ML ML SQ SCH ×4 (07:30→20:44)
[2022-02-02] MEDS ORDERED: POTASSIUM 25 MEQ EFFERV TAB PO ONE (07:30)
--- NOTE | 2022-02-02 07:55 | EKG ---
Test Date: 2022-02-01 Test Time: 13:16:27 Warehouse Record Clerk: [id number] MEASUREMENT RESULTS: Intervals: Rate: 154 HI: QRSD: 82 QT: 278 QTc: 445 [place]: P: HI: QRS: 69 T: -88 INTERPRETIVE STATEMENTS: Atrial fibrillation with rapid ventricular response with premature ventricular or aberrantly conducted complexes Posterior infarct, age undetermined Abnormal ECG No previous ECG available for comparison Electronically Signed On 02-02-22 07:53:26 CDT by Mekhi Conte
--- NOTE | 2022-02-02 07:55 | EKG ---
Test Date: 2022-02-01 Test Time: 13:17:50 Tissue Technician: [id number] MEASUREMENT RESULTS: Intervals: Rate: 120 TX: 150 QRSD: 72 QT: 336 QTc: 474 [place]: P: 80 TX: 150 QRS: 71 T: 69 INTERPRETIVE STATEMENTS: Sinus tachycardia with frequent premature ventricular complexes Right atrial enlargement Nonspecific ST abnormality Abnormal ECG Compared to ECG 02/01/2022 13:16:27 Atrial abnormality now present ST (T wave) deviation now present Atrial fibrillation no longer present Myocardial infarct finding no longer present Electronically Signed On 02-02-22 07:53:24 CDT by Mekhi Conte
[2022-02-02] MEDS: ATORVASTATIN 10 MG TAB PO SCH (08:37)
[2022-02-02] MEDS: ASPIRIN EC 81 MG TAB PO SCH (08:37)
[2022-02-02] MEDS: SPIRONOLACTONE 25 MG TABLET PO SCH (08:37)
[2022-02-02] MEDS: RIVAROXABAN 15 MG TABLET PO SCH (08:37)
[2022-02-02] MEDS: predniSONE 20 MG TAB PO SCH ×2 (08:38→20:44)
--- NOTE | 2022-02-02 08:44 | P.PN ---
Subjective Date of Service: 02/02/22 Chief Complaint: Acute on chronic respiratory failure Subjective: Improving (Patient is improving she developed A. fib yesterday) Review of Systems General: Weakness Respiratory: Shortness of Breath Physical Examination - Vital Signs Temperature: 97.6 F Blood Pressure: 142/84 Pulse: 100 Respirations: 17 Pulse Ox (%): 97 - Physical Exam General: Alert, Oriented x3, Mild distress Respiratory: Clear to auscultation bilaterally, Diminished Cardiovascular: No edema, Irregular heart rate/rhythm Assessment And Plan - Current Problems (Diagnosis) (1) Acute and chronic respiratory failure ([id number]) Current Visit: Yes Status: Acute Plan: Patient has improved developed A. fib yesterday is off BiPAP on nasal cannula oxygen arterial blood gases shows mild hypercapnia no clinical evidence of sepsis (2) Pulmonary emboli Current Visit: Yes Status: Acute Plan: Continue with anticoagulation no evidence of DVT vital signs stable oxygenation satisfactory patient is anticoagulated DC levofloxacin Qualifiers: Pulmonary embolism type: multiple subsegmental (without acute cor pulmonale) Qualified Code(s): I26.94 - Multiple subsegmental pulmonary emboli without acute cor pulmonale Physician Review: Patient Assessed, Agree with Above Assessment and Plan
[2022-02-02] MEDS ORDERED: levoFLOXacin 500 MG TAB PO SCH (09:00)
--- NOTE | 2022-02-02 11:18 | P.PN ---
Subjective Date of Service: 02/02/22 Chief Complaint: Acute on chronic respiratory failure No acute events overnight. She reports significant improvement in her shortness of breath. She is now maintaining SpO2 readings in the upper 90s on 2L NC. She denies any chest pain or palpitations. Review of Systems 10-point ROS is otherwise unremarkable Respiratory: Shortness of Breath, Wheezing Physical Examination - Vital Signs Temperature: 97.6 F Blood Pressure: 142/84 Pulse: 100 Respirations: 17 Pulse Ox (%): 97 Assessment And Plan - Plan - Physical Exam General: Alert, In no apparent distress, Oriented x3 HEENT: Atraumatic, PERRLA, Mucous membr. moist/pink, EOMI, Sclerae nonicteric Neck: Supple, JVD not distended Respiratory: Diminished, Expiratory wheezes (faint end-expiratory), Rhonchi/gurgles, Other (SpO2 97 % on 2 L NC) Cardiovascular: No edema, Regular rate/rhythm, Normal S1 S2, No gallops, No rubs, No murmurs, Edema (trace bilateral) Gastrointestinal: Normal bowel sounds, Soft and benign, Non-distended, No tenderness, No rebound, No guarding Musculoskeletal: No clubbing Integumentary: No rashes Neurological: Normal speech, Cranial nerves 3-12 intact, Normal affect # Severe Sepsis likely secondary to Right Upper Lobe Community-Acquired Pneumonia She met SIRS criteria based on HR > 90 bpm and RR > 20 breaths/min, and the suspected source is pneumonia. Severe sepsis is suspected due to concern for tissue hypoperfusion/organ dysfunction based on acute respiratory failure requiring CPAP/BiPAP and lactic acid > 2 mmol/L. - Sepsis order set was initiated - Lactate trend was 2.2 -> 1.4 - Blood cultures drawn before antibiotics were given - Broad spectrum antibiotics started: Levofloxacin - In regards to fluids: - 30 mL/kg of IV fluids was not administered given SBP > 90, MAP > 65, lactic acid < 4 # Acute Hypercapnic Respiratory Failure - likely secondary to Acute Chronic Obstructive Pulmonary Disease Exacerbation +/- Acute Right Lower Lobe Subsegmental Pulmonary Embolism # Concern for Acute Congestive Heart Failure (Unknown Ejection Fraction) Currently, she is on 2 L nasal cannula, with improvement of her SpO2 readings to 97 %. - Evaluation thus far: - Procalcitonin = <0.05 - Initial ABG = pH 7.19, PCO2 90.4, PO2 111.0 - Chest x-ray = "No focal mass or consolidation. Prominent interstitial markings throughout both lung corona slightly worse in the lower right lung field. As a baseline study, the interstitial pattern could reflect chronic fibrosis, interstitial infiltrate, interstitial edema or a combination. " - CT chest angiogram = "Small embolus subsegmental right lower lobe pulmonary artery. COPD. Mild patchy right upper lobe opacity may represent pneumonitis or pneumonia." - Management plan: - Consulted Pulmonary Medicine - recommendations appreciated - Steroids and bronchodilators per Pulm - Consulted Cardiology and spoke with Dr. Conte - recommendations appreciated - Consulted Respiratory Therapy - Switch enoxaparin to apixaban - Supplemental oxygen to maintain SpO2 > 92% - Continue levofloxacin - Encourage incentive spirometry once off BiPAP - Obtain home oxygen evaluation # Suspected Type II Non-ST Segment Elevation Myocardial Infarction (Demand Ischemia) - Consulted Cardiology and spoke with Dr. Conte - recommendations appreciated - EKG reportedly without ischemic changes - Troponin trend: 1209.6 -> 985.5 -> 772.6 - Reviewed outside cardiac stress test from [facility] - negative for inducible ischemia (performed on 01/30/2022) - Switch enoxaparin to apixaban - Continue aspirin + atorvastatin # Type II Diabetes Mellitus - Hgb A1c = 5.5 % - Correction scale insulin Alonso Boyce M.D. Discharge Plan: Home Plan to discharge in: 24 Hours
[2022-02-03] MEDS: IPRATROPIUM BROM 0.5MG/2.5ML NEB SCH ×4 (01:20→19:55)
[2022-02-03] MEDS: INSULIN -REGULAR HUMAN 50 UNIT/0.5 ML ML SQ SCH ×4 (07:30→21:00)
[2022-02-03 07:52] LABS: Magnesium 2.3 mg/dL (1.8-2.4); Phosphorus 2.6 mg/dL (2.5-4.9); Potassium 4.4 mmol/L (3.5-5.1)
[2022-02-03] MEDS: ASPIRIN EC 81 MG TAB PO SCH (07:53)
[2022-02-03] MEDS: SPIRONOLACTONE 25 MG TABLET PO SCH (07:53)
[2022-02-03] MEDS: VERAPAMIL HCL 80 MG TABLET PO SCH ×3 (07:54→21:53)
[2022-02-03] MEDS: ATORVASTATIN 10 MG TAB PO SCH (07:54)
[2022-02-03] MEDS: predniSONE 20 MG TAB PO SCH ×2 (07:55→21:53)
[2022-02-03] MEDS: APIXABAN 5 MG TABLET PO SCH ×2 (07:55→21:53)
--- NOTE | 2022-02-03 10:10 | ECHO ---
HEIGHT: 5 ft 2 in WEIGHT: 168 lb 1.6 oz DATE OF STUDY: 02/03/[address]: Soy Henriquez 2-DIMENSIONAL: YES M.MODE: YES DOPPLER: YES COLOR FLOW: YES TDS: NO PORTABLE: YES DEFINITY: NO BUBBLE STUDY: NO DIAGNOSIS: ELEVATED TROPONIN CARDIAC HISTORY: CATHERIZATION: NO SURGERY: NO PROSTHETIC VALVE: NO PACEMAKER: NO MEASUREMENTS (cm) DIASTOLIC (NORMALS) SYSTOLIC (NORMALS) IVSd 0.9 (0.6-1.2) LA Diam 2.4 (1.9-4.0) LVEF 50% LVIDd 3.8 (3.5-5.7) LVIDs 2.9 (2.0-3.5) %FS 25% LVPWd 1.0 (0.6-1.2) Ao Diam 2.5 (2.0-3.7) 2 DIMENSIONAL ASSESSMENT: RIGHT ATRIUM: NORMAL LEFT ATRIUM: NORMAL RIGHT VENTRICLE: NORMAL LEFT VENTRICLE: NORMAL TRICUSPID VALVE: NORMAL MITRAL VALVE: NORMAL PULMONIC VALVE: NORMAL AORTIC VALVE: NORMAL PERICARDIAL EFFUSION: NONE AORTIC ROOT: NORMAL LEFT VENTRICULAR WALL MOTION: NORMAL DOPPLER/COLOR FLOW: MILD TRICUSPID REGURGITATION. COMMENTS: MILD TRICUSPID REGURGITATION. NORMAL LEFT VENTRICULAR EJECTION FRACTION AND SIZE. NO WALL MOTION ABNORMALITY. TECHNOLOGIST: Alexey THAYER
--- NOTE | 2022-02-03 15:47 | P.PN ---
Subjective Date of Service: 02/03/22 Chief Complaint: Acute on chronic respiratory failure No acute events overnight. She reports that she feels relatively well, but she is still experiencing palpitations with ambulation. Review of Systems 10-point ROS is otherwise unremarkable Respiratory: SOB with Excertion Cardiovascular: Palpitations Physical Examination - Vital Signs Temperature: 98.3 F Blood Pressure: 129/67 Pulse: 100 Respirations: 24 Pulse Ox (%): 96 Assessment And Plan - Plan - Physical Exam General: Alert, In no apparent distress, Oriented x3 HEENT: Atraumatic, PERRLA, Mucous membr. moist/pink, EOMI, Sclerae nonicteric Neck: Supple, JVD not distended Respiratory: Diminished, minimal to no wheezing, Other (SpO2 95 % on 3 L NC) Cardiovascular: No edema, Regular rate/rhythm, Normal S1 S2, No gallops, No rubs, No murmurs, Edema (trace bilateral) Gastrointestinal: Normal bowel sounds, Soft and benign, Non-distended, No tenderness, No rebound, No guarding Musculoskeletal: No clubbing Integumentary: No rashes Neurological: Normal speech, Cranial nerves 3-12 intact, Normal affect # Severe Sepsis likely secondary to Right Upper Lobe Community-Acquired Pneumonia She met SIRS criteria based on HR > 90 bpm and RR > 20 breaths/min, and the suspected source is pneumonia. Severe sepsis is suspected due to concern for tissue hypoperfusion/organ dysfunction based on acute respiratory failure requiring CPAP/BiPAP and lactic acid > 2 mmol/L. - Sepsis order set was initiated - Lactate trend was 2.2 -> 1.4 - Blood cultures drawn before antibiotics were given - Broad spectrum antibiotics started: Levofloxacin - In regards to fluids: - 30 mL/kg of IV fluids was not administered given SBP > 90, MAP > 65, lactic acid < 4 # Acute Hypercapnic Respiratory Failure - likely secondary to Acute Chronic Obstructive Pulmonary Disease Exacerbation +/- Acute Right Lower Lobe Subsegmental Pulmonary Embolism # Concern for Acute Congestive Heart Failure (Unknown Ejection Fraction) Currently, she is on 2 L nasal cannula, with improvement of her SpO2 readings to 97 %. - Evaluation thus far: - Procalcitonin = <0.05 - Initial ABG = pH 7.19, PCO2 90.4, PO2 111.0 - Chest x-ray = "No focal mass or consolidation. Prominent interstitial markings throughout both lung corona slightly worse in the lower right lung field. As a baseline study, the interstitial pattern could reflect chronic fibrosis, interstitial infiltrate, interstitial edema or a combination. " - CT chest angiogram = "Small embolus subsegmental right lower lobe pulmonary artery. COPD. Mild patchy right upper lobe opacity may represent pneumonitis or pneumonia" - Management plan: - Consulted Pulmonary Medicine - recommendations appreciated - Steroids and bronchodilators per Pulm - Consulted Cardiology and spoke with Dr. Conte - recommendations appreciated - Consulted Respiratory Therapy - Switch enoxaparin to apixaban - Supplemental oxygen to maintain SpO2 > 92% - Continue levofloxacin - Encourage incentive spirometry once off BiPAP - Obtain home oxygen evaluation # Suspected Type II Non-ST Segment Elevation Myocardial Infarction (Demand Ischemia) - Consulted Cardiology and spoke with Dr. Conte - recommendations appreciated - EKG reportedly without ischemic changes - Troponin trend: 1209.6 -> 985.5 -> 772.6 - Reviewed outside cardiac stress test from [facility] - negative for inducible ischemia (performed on 01/30/2022) - Switch enoxaparin to apixaban - Continue aspirin + atorvastatin # Paroxysmal Atrial Fibrillation with Rapid Ventricular Response Her [id number] = 4 (CHF=1, DM=1, Age 65-74=1, Sex=1), which warrants anticoagulation. - Cardiology consulted and spoke with Dr. Conte - recommendations appreciated - For rate control: - Continue verapamil - For anticoagulation: - Continuate apixaban # Type II Diabetes Mellitus - Hgb A1c = 5.5 % - Correction scale insulin Alonso Boyce M.D. Discharge Plan: Home Plan to discharge in: 24 Hours
[2022-02-04] MEDS: IPRATROPIUM BROM 0.5MG/2.5ML NEB SCH ×4 (01:20→19:25)
[2022-02-04] MEDS ORDERED: Levofloxacin500mg IV 500 MG/100 ML BAG IV SCH (03:00)
[2022-02-04] MEDS: INSULIN -REGULAR HUMAN 50 UNIT/0.5 ML ML SQ SCH ×4 (07:30→20:40)
[2022-02-04] MEDS: ATORVASTATIN 10 MG TAB PO SCH (09:08)
[2022-02-04] MEDS: SPIRONOLACTONE 25 MG TABLET PO SCH (09:08)
[2022-02-04] MEDS: VERAPAMIL HCL 80 MG TABLET PO SCH ×3 (09:08→20:38)
[2022-02-04] MEDS: ASPIRIN EC 81 MG TAB PO SCH (09:08)
[2022-02-04] MEDS: predniSONE 20 MG TAB PO SCH ×2 (09:09→20:39)
[2022-02-04] MEDS: APIXABAN 5 MG TABLET PO SCH ×2 (09:09→20:39)
--- NOTE | 2022-02-04 13:46 | P.PN ---
Subjective Date of Service: 02/04/22 Chief Complaint: Acute on chronic respiratory failure Overnight, she woke up with significant diaphoresis and palpitations around 01:30 AM. Review of telemetry reveals atrial fibrillation with RVR. Currently, rate-controlled. This morning she feels relatively well, but she is still ex periencing palpitations with ambulation. Review of Systems 10-point ROS is otherwise unremarkable General: Sweats Cardiovascular: Palpitations Physical Examination - Vital Signs Temperature: 97.7 F Blood Pressure: 116/65 Pulse: 70 Respirations: 16 Pulse Ox (%): 97 Assessment And Plan - Plan - Physical Exam General: Alert, In no apparent distress, Oriented x3 HEENT: Atraumatic, PERRLA, Mucous membr. moist/pink, EOMI, Sclerae nonicteric Neck: Supple, JVD not distended Respiratory: Diminished, minimal to no wheezing, Other (SpO2 95 % on 3 L NC) Cardiovascular: No edema, Regular rate/rhythm, Normal S1 S2, No gallops, No rubs, No murmurs, Edema (trace bilateral) Gastrointestinal: Normal bowel sounds, Soft and benign, Non-distended, No tenderness, No rebound, No guarding Musculoskeletal: No clubbing Integumentary: No rashes Neurological: Normal speech, Cranial nerves 3-12 intact, Normal affect # Paroxysmal Atrial Fibrillation with Rapid Ventricular Response Her [id number] = 4 (CHF=1, DM=1, Age 65-74=1, Sex=1), which warrants anticoagulation. - Cardiology consulted and spoke with Dr. Conte - recommendations appreciated - For rate control: - Continue verapamil (increase dose per Cardiology recs) - For anticoagulation: - Continuate apixaban # Severe Sepsis likely secondary to Right Upper Lobe Community-Acquired Pneumonia She met SIRS criteria based on HR > 90 bpm and RR > 20 breaths/min, and the suspected source is pneumonia. Severe sepsis is suspected due to concern for tissue hypoperfusion/organ dysfunction based on acute respiratory failure requiring CPAP/BiPAP and lactic acid > 2 mmol/L. - Sepsis order set was initiated - Lactate trend was 2.2 -> 1.4 - Blood cultures drawn before antibiotics were given - Broad spectrum antibiotics started: Levofloxacin - In regards to fluids: - 30 mL/kg of IV fluids was not administered given SBP > 90, MAP > 65, lactic acid < 4 # Acute Hypercapnic Respiratory Failure - likely secondary to Acute Chronic Obstructive Pulmonary Disease Exacerbation +/- Acute Right Lower Lobe Subsegmental Pulmonary Embolism # Concern for Acute Congestive Heart Failure (Unknown Ejection Fraction) Currently, she is on 2 L nasal cannula, with improvement of her SpO2 readings to 97 %. - Evaluation thus far: - Procalcitonin = <0.05 - Initial ABG = pH 7.19, PCO2 90.4, PO2 111.0 - Chest x-ray = "No focal mass or consolidation. Prominent interstitial markings throughout both lung corona slightly worse in the lower right lung field. As a baseline study, the interstitial pattern could reflect chronic fibrosis, interstitial infiltrate, interstitial edema or a combination. " - CT chest angiogram = "Small embolus subsegmental right lower lobe pulmonary artery. COPD. Mild patchy right upper lobe opacity may represent pneumonitis or pneumonia" - Management plan: - Consulted Pulmonary Medicine - recommendations appreciated - Steroids and bronchodilators per Pulm - Consulted Cardiology and spoke with Dr. Conte - recommendations appreciated - Consulted Respiratory Therapy - Switch enoxaparin to apixaban - Supplemental oxygen to maintain SpO2 > 92% - Continue levofloxacin - Encourage incentive spirometry once off BiPAP - Obtain home oxygen evaluation # Suspected Type II Non-ST Segment Elevation Myocardial Infarction (Demand Ischemia) - Consulted Cardiology and spoke with Dr. Conte - recommendations appreciated - EKG reportedly without ischemic changes - Troponin trend: 1209.6 -> 985.5 -> 772.6 - Reviewed outside cardiac stress test from [facility] - negative for inducible ischemia (performed on 01/30/2022) - Switch enoxaparin to apixaban - Continue aspirin + atorvastatin # Type II Diabetes Mellitus - Hgb A1c = 5.5 % - Correction scale insulin Alonso Boyce M.D. Discharge Plan: Home Plan to discharge in: 24 Hours
[2022-02-04] MEDS: CALCIUM CARBONATE CHEW 500MG TAB PO PRN ×2 (14:10→20:38)
--- NOTE | 2022-02-04 16:16 | P.PN ---
Subjective Date of Service: 02/04/22 Chief Complaint: Acute on chronic respiratory failure Subjective: Improving (Patient is doing better developed an episode of acute A. fib rate is currently controlled feeling better) Review of Systems General: Weakness Respiratory: Shortness of Breath Physical Examination - Vital Signs Temperature: 97.7 F Blood Pressure: 116/65 Pulse: 70 Respirations: 16 Pulse Ox (%): 97 - Physical Exam General: Alert, In no apparent distress, Oriented x3 Respiratory: Clear to auscultation bilaterally, Diminished Cardiovascular: No edema, Normal pulses Assessment And Plan - Current Problems (Diagnosis) (1) Acute and chronic respiratory failure ([id number]) Current Visit: Yes Status: Acute Plan: Patient admitted with acute on chronic respiratory failure doing much better prepped an episode of A. fib blood gases show mild hypercapnia patient is back in normal sinus rhythm she does have a small right lower lobe pulmonary embolus no evidence of pneumonia patient has had no fever also white count is normal (2) Pulmonary emboli Current Visit: Yes Status: Acute Plan: Continue with anticoagulation no evidence of DVT vital signs stable oxygenation satisfactory patient is anticoagulated DC levofloxacin Qualifiers: Pulmonary embolism type: multiple subsegmental (without acute cor pulmonale) Qualified Code(s): I26.94 - Multiple subsegmental pulmonary emboli without acute cor pulmonale Physician Review: Patient Assessed, Agree with Above Assessment and Plan
[2022-02-05] MEDS: IPRATROPIUM BROM 0.5MG/2.5ML NEB SCH ×4 (01:15→20:05)
[2022-02-05 03:51] LABS: Absolute Lymphocytes (CBC) 0.7 K/uL (0.7-4.9); Hematocrit 30.2 % (36.0-45.0); Lymphocytes % 11.2 % (15.3-44.8); MCV 89.8 fL (80-100); RBC Red Blood Cell Count 3.37 M/uL (3.86-4.86)
[2022-02-05 04:01] LABS: Magnesium 2.4 mg/dL (1.8-2.4); Potassium 4.7 mmol/L (3.5-5.1)
[2022-02-05] MEDS: ACETAMINOPHEN 500 MG TAB PO PRN (04:36)
[2022-02-05] MEDS: INSULIN -REGULAR HUMAN 50 UNIT/0.5 ML ML SQ SCH ×4 (07:30→21:00)
--- NOTE | 2022-02-05 09:31 | PN ---
Date of Progress Note: 02/02/2022 Ms. Gregory has been followed by me and Dr. Ferro for elevated troponin and acute hypoxia, history o f COPD, and diabetes. Echocardiogram was still pending, but the patient was having an episode of par oxysmal atrial fibrillation. She is not a good candidate for amiodarone because of her pulmonary sit uation. I suggested we use verapamil 80 mg 1 p.o. t.i.d. Case was discussed with Dr. Boyce. Clinic ally speaking. Vital signs were stable. She was afebrile. She is still has O2 saturation of 95% on nasal cannula and facial BiPAP. Her present regimen includes Eliquis, aspirin, Lipitor, inhalers, a ntibiotics, spironolactone, and prednisone. As mentioned earlier, verapamil was added. BITA/EPI Voice ID: [id number] Report ID: [id number]
--- NOTE | 2022-02-05 09:37 | PN ---
Date of Progress Note: 02/03/2022 Ms. Gregory was placed on verapamil 80 mg t.i.d. for paroxysmal atrial fibrillation. She is not a can didate for beta-blockers and amiodarone because of severe pulmonary disease. An echocardiogram, ic h was done on 02/03/2022 showed mild tricuspid regurgitation, normal right ventricular systolic press ure, normal ejection fraction, no wall motion abnormalities. She is still having occasional atrial f ibrillation and I would increase her verapamil to 120 mg 3 times a day. If this does not work, we wi ll consider using sotalol. Case was discussed with Dr. Boyce. BITA/EPI Voice ID: [id number] Report ID: [id number]
[2022-02-05] MEDS: VERAPAMIL HCL 80 MG TABLET PO SCH ×3 (09:45→21:17)
[2022-02-05] MEDS: ATORVASTATIN 10 MG TAB PO SCH (09:45)
[2022-02-05] MEDS: SPIRONOLACTONE 25 MG TABLET PO SCH (09:45)
[2022-02-05] MEDS: predniSONE 20 MG TAB PO SCH ×2 (09:45→21:16)
[2022-02-05] MEDS: DIGOXIN 0.125 MG TABLET PO SCH (09:45)
[2022-02-05] MEDS: ASPIRIN EC 81 MG TAB PO SCH (09:45)
[2022-02-05] MEDS: APIXABAN 5 MG TABLET PO SCH ×2 (12:58→21:16)
--- NOTE | 2022-02-05 17:29 | P.PN ---
Subjective Date of Service: 02/05/22 Chief Complaint: Acute on chronic respiratory failure Overnight, she had one additional episode of palpitations. Review of telemetry confirms atrial fibrillation with RVR in the 130s-150s. Currently, rate- controlled. This morning she feels relatively well, but is concerned being disch arged given the recurrent episodes of RVR. Review of Systems 10-point ROS is otherwise unremarkable Cardiovascular: Palpitations Physical Examination - Vital Signs Temperature: 97.8 F Blood Pressure: 110/52 Pulse: 87 Respirations: 16 Pulse Ox (%): 96 Assessment And Plan - Plan - Physical Exam General: Alert, In no apparent distress, Oriented x3 HEENT: Atraumatic, PERRLA, Mucous membr. moist/pink, EOMI, Sclerae nonicteric Neck: Supple, JVD not distended Respiratory: Diminished, minimal to no wheezing, Other (SpO2 95 % on 3 L NC) Cardiovascular: No edema, irregularly, irregular rate/rhythm, No gallops, No rubs, No murmurs, Edema (trace bilateral) Gastrointestinal: Normal bowel sounds, Soft and benign, Non-distended, No tenderness, No rebound, No guarding Musculoskeletal: No clubbing Integumentary: No rashes Neurological: Normal speech, Cranial nerves 3-12 intact, Normal affect # Paroxysmal Atrial Fibrillation with Rapid Ventricular Response Her [id number] = 4 (CHF=1, DM=1, Age 65-74=1, Sex=1), which warrants anticoagulation. - Cardiology consulted and spoke with Dr. Conte - recommendations appreciated - For rate control: - Continue verapamil 120 mg PO TID - Started digoxin 125 mcg daily (per Cardiology recs) - For anticoagulation: - Continuate apixaban # Severe Sepsis likely secondary to Right Upper Lobe Community-Acquired Pneumonia She met SIRS criteria based on HR > 90 bpm and RR > 20 breaths/min, and the suspected source is pneumonia. Severe sepsis is suspected due to concern for tissue hypoperfusion/organ dysfunction based on acute respiratory failure requiring CPAP/BiPAP and lactic acid > 2 mmol/L. - Sepsis order set was initiated - Lactate trend was 2.2 -> 1.4 - Blood cultures drawn before antibiotics were given - Broad spectrum antibiotics started: Levofloxacin - In regards to fluids: - 30 mL/kg of IV fluids was not administered given SBP > 90, MAP > 65, lactic acid < 4 # Acute Hypercapnic Respiratory Failure - likely secondary to Acute Chronic Obstructive Pulmonary Disease Exacerbation +/- Acute Right Lower Lobe Subsegmental Pulmonary Embolism # Concern for Acute Congestive Heart Failure (Unknown Ejection Fraction) Currently, she is on 2 L nasal cannula, with improvement of her SpO2 readings to 97 %. - Evaluation thus far: - Procalcitonin = <0.05 - Initial ABG = pH 7.19, PCO2 90.4, PO2 111.0 - Chest x-ray = "No focal mass or consolidation. Prominent interstitial markings throughout both lung corona slightly worse in the lower right lung field. As a baseline study, the interstitial pattern could reflect chronic fibrosis, interstitial infiltrate, interstitial edema or a combination. " - CT chest angiogram = "Small embolus subsegmental right lower lobe pulmonary artery. COPD. Mild patchy right upper lobe opacity may represent pneumonitis or pneumonia" - Management plan: - Consulted Pulmonary Medicine - recommendations appreciated - Steroids and bronchodilators per Pulm - Consulted Cardiology and spoke with Dr. Conte - recommendations appreciated - Consulted Respiratory Therapy - Switch enoxaparin to apixaban - Supplemental oxygen to maintain SpO2 > 92% - Continue levofloxacin - Encourage incentive spirometry once off BiPAP - Obtain home oxygen evaluation # Suspected Type II Non-ST Segment Elevation Myocardial Infarction (Demand Ischemia) - Consulted Cardiology and spoke with Dr. Conte - recommendations appreciated - EKG reportedly without ischemic changes - Troponin trend: 1209.6 -> 985.5 -> 772.6 - Reviewed outside cardiac stress test from [facility] - negative for inducible ischemia (performed on 01/30/2022) - Switch enoxaparin to apixaban - Continue aspirin + atorvastatin # Type II Diabetes Mellitus - Hgb A1c = 5.5 % - Correction scale insulin Alonso Boyce M.D. Discharge Plan: Home Plan to discharge in: 24 Hours
[2022-02-05] MEDS: ENSURE HIGH PROTEIN 237 ML CAN PO SCH (21:16)
[2022-02-06] MEDS: IPRATROPIUM BROM 0.5MG/2.5ML NEB SCH ×4 (01:30→19:30)
[2022-02-06 04:05] LABS: Absolute Lymphocytes (CBC) 0.9 K/uL (0.7-4.9); Hematocrit 30.2 % (36.0-45.0); Lymphocytes % 9.5 % (15.3-44.8); MCV 89.2 fL (80-100); MPV 9.5 fL (7.6-11.3); RBC Red Blood Cell Count 3.39 M/uL (3.86-4.86)
[2022-02-06 04:34] LABS: Magnesium 2.2 mg/dL (1.8-2.4); Potassium 4.5 mmol/L (3.5-5.1); Thyroid Stimulating Hormone 3.05 uIU/mL (0.360-3.740)
[2022-02-06] MEDS: INSULIN -REGULAR HUMAN 50 UNIT/0.5 ML ML SQ SCH ×4 (07:30→21:00)
[2022-02-06] MEDS: ASPIRIN EC 81 MG TAB PO SCH (08:58)
[2022-02-06] MEDS: DIGOXIN 0.125 MG TABLET PO SCH (08:58)
[2022-02-06] MEDS: SPIRONOLACTONE 25 MG TABLET PO SCH (08:59)
[2022-02-06] MEDS: APIXABAN 5 MG TABLET PO SCH ×2 (08:59→21:03)
[2022-02-06] MEDS: ATORVASTATIN 10 MG TAB PO SCH (08:59)
[2022-02-06] MEDS: predniSONE 20 MG TAB PO SCH ×2 (08:59→21:03)
[2022-02-06] MEDS: VERAPAMIL HCL 80 MG TABLET PO SCH ×3 (09:00→21:03)
[2022-02-06] MEDS: ENSURE HIGH PROTEIN 237 ML CAN PO SCH ×2 (09:01→21:03)
--- NOTE | 2022-02-06 14:21 | EKG ---
Test Date: 2022-01-31 Test Time: 10:53:13 Loom Changer: GIANCARLO MEASUREMENT RESULTS: Intervals: Rate: 122 WV: 158 QRSD: 68 QT: 326 QTc: 464 [place]: P: 71 WV: 158 QRS: 49 T: 49 INTERPRETIVE STATEMENTS: Sinus tachycardia Biatrial enlargement Nonspecific ST abnormality Abnormal ECG No previous ECG available for comparison Electronically Signed On 02-06-22 14:20:00 CDT by Soy Henriquez
--- NOTE | 2022-02-07 00:13 | P.PN ---
Subjective Date of Service: 02/06/22 Subjective: No new changes, No C/O voiced, Improving Review of Systems 10-point ROS is otherwise unremarkable Physical Examination - Vital Signs Temperature: 97.2 F Blood Pressure: 123/57 Pulse: 82 Respirations: 16 Pulse Ox (%): 97 - Physical Exam General: Alert, In no apparent distress HEENT: Atraumatic, PERRLA, EOMI Neck: Supple, JVD not distended Respiratory: Clear to auscultation bilaterally, Normal air movement Cardiovascular: Regular rate/rhythm, Normal S1 S2 Gastrointestinal: Normal bowel sounds, No tenderness Musculoskeletal: No tenderness Integumentary: No rashes Neurological: Normal speech, Normal tone, Normal affect Lymphatics: No axilla or inguinal lymphadenopathy - Studies Medications List Reviewed: Yes Assessment & Plan - Problems (Diagnosis) (1) Acute and chronic respiratory failure ([id number]) Current Visit: Yes Status: Acute (2) Pulmonary emboli Current Visit: Yes Status: Acute Qualifiers: Pulmonary embolism type: multiple subsegmental (without acute cor pulmonale) Qualified Code(s): I26.94 - Multiple subsegmental pulmonary emboli without acute cor pulmonale - Advance Directives Does patient have a Living Will: No Does patient have a Durable POA for Healthcare: No - Code Status/Comfort Care Code Status: Full Code Physician Review: Patient Assessed, Agree with Above Assessment and Plan
[2022-02-07] MEDS: IPRATROPIUM BROM 0.5MG/2.5ML NEB SCH ×3 (01:15→14:00)
[2022-02-07 06:12] LABS: Absolute Lymphocytes (CBC) 0.9 K/uL (0.7-4.9); Hematocrit 32.1 % (36.0-45.0); Lymphocytes % 9.7 % (15.3-44.8); MCV 91.1 fL (80-100); MPV 9.8 fL (7.6-11.3); RBC Red Blood Cell Count 3.52 M/uL (3.86-4.86)
[2022-02-07 06:31] LABS: Magnesium 2.5 mg/dL (1.8-2.4); Potassium 4.8 mmol/L (3.5-5.1)
[2022-02-07] MEDS: INSULIN -REGULAR HUMAN 50 UNIT/0.5 ML ML SQ SCH ×2 (07:30→11:30)
--- NOTE | 2022-02-07 07:50 | RAD REPORT ---
EXAM DESCRIPTION: RAD - Chest Single View - 02/07/2022 6:15 am CLINICAL HISTORY: pneumonia COMPARISON: Chest Single View dated 01/31/2022; Chest For Pe Angio dated 01/31/2022 FINDINGS: Lines: None. Lungs: No evidence of edema or pneumonia. Pleural: No significant pleural effusions or pneumothorax. Cardiac: The heart size is within normal limits. Bones: No acute fractures. Other: IMPRESSION: No acute cardiopulmonary disease.
[2022-02-07 09:05] VITALS: O2SAT 96
[2022-02-07] MEDS: ATORVASTATIN 10 MG TAB PO SCH (09:19)
[2022-02-07] MEDS: predniSONE 20 MG TAB PO SCH (09:20)
[2022-02-07] MEDS: APIXABAN 5 MG TABLET PO SCH (09:20)
[2022-02-07] MEDS: ASPIRIN EC 81 MG TAB PO SCH (09:20)
[2022-02-07] MEDS: SPIRONOLACTONE 25 MG TABLET PO SCH (09:20)
[2022-02-07] MEDS: DIGOXIN 0.125 MG TABLET PO SCH (09:20)
[2022-02-07] MEDS: VERAPAMIL HCL 80 MG TABLET PO SCH ×2 (09:21→14:13)
[2022-02-07] MEDS: ENSURE HIGH PROTEIN 237 ML CAN PO SCH (09:22)
[2022-02-07 13:48] VITALS: BP 110/48; TEMP 97.3
[2022-02-07] MEDS ORDERED: predniSONE 10 MG TAB PO SCH (21:00)
--- NOTE | 2022-02-08 09:20 | P.DS ---
Discharge Date: 02/07/22 Disposition: ROUTINE DISCHARGE Reason for Admission: Acute on chronic respiratory failure - Problems (1) Acute and chronic respiratory failure ([id number]) Status: Acute (2) Pulmonary emboli Status: Acute Qualifiers: Pulmonary embolism type: multiple subsegmental (without acute cor pulmonale) Qualified Code(s): I26.94 - Multiple subsegmental pulmonary emboli without acute cor pulmonale Vital Signs/Physical Exam: Temp Pulse Resp BP Pulse Ox 97.3 F 86 20 110/48 L 86 L 02/07/22 16:00 02/07/22 16:00 02/07/22 16:00 02/07/22 16:00 02/07/22 16:00 General: Alert, In no apparent distress, Oriented x3 Laboratory Data at Discharge: WBC 9.00 K/uL (4.3-10.9) 02/07/22 05:41 Hgb 10.4 g/dL (12.0-15.0) L 02/07/22 05:41 Hct 32.1 % (36.0-45.0) L 02/07/22 05:41 Plt Count 409 K/uL (152-406) H 02/07/22 05:41 PT 11.4 SECONDS (9.5-12.5) 01/31/22 11:24 INR 1.04 01/31/22 11:24 APTT 35.5 SECONDS (24.3-36.9) 01/31/22 14:36 Sodium 136 mmol/L (136-145) 02/07/22 05:41 Potassium 4.8 mmol/L (3.5-5.1) 02/07/22 05:41 BUN 30 mg/dL (7-18) H 02/07/22 05:41 Creatinine 0.69 mg/dL (0.55-1.3) 02/07/22 05:41 Glucose 130 mg/dL (74-106) H 02/07/22 05:41 Phosphorus 2.6 mg/dL (2.5-4.9) 02/03/22 07:29 Magnesium 2.5 mg/dL (1.8-2.4) H 02/07/22 05:41 Total Bilirubin 0.3 mg/dL (0.2-1.0) 01/31/22 14:15 AST 34 U/L (15-37) 01/31/22 14:15 ALT 27 U/L (12-78) 01/31/22 14:15 Alkaline Phosphatase 71 U/L (45-117) 01/31/22 14:15 Home Medications: Albuterol Sulfate [Albuterol Sulfate Hfa] 1 amp NEB Q4HR 01/31/22 Atorvastatin Calcium 10 mg PO DAILY 01/31/22 Diltiazem Tab [Cardizem Tab] 30 mg PO TID 01/31/22 Fluticasone/Salmeterol [Advair 250-50 Diskus] 1 diskus IH BID 01/31/22 Furosemide 40 mg PO DAILY 01/31/22 Metformin ER [Glucophage ER] 1,000 mg PO DAILY 01/31/22 Tiotropium [place] [Spiriva] 18 mcg IH DAILY 01/31/22 Apixaban [Eliquis] 5 mg PO BID #60 02/07/22 Calcium Carbonate [Tums Regular*] 500 mg PO QID PRN #120 tab 02/07/22 Digoxin [Lanoxin*] 0.125 mg PO DAILY #30 tab 02/07/22 Ensure High Protein 237 ml PO BID #60 can 02/07/22 Spironolactone [Aldactone*] 25 mg PO DAILY #30 tab 02/07/22 predniSONE [Prednisone*] 20 mg PO BID #25 tab 02/07/22 New Medications: Spironolactone [Aldactone*] 25 mg PO DAILY #30 tab Apixaban [Eliquis] 5 mg PO BID #60 Ensure High Protein 237 ml PO BID #60 can Digoxin [Lanoxin*] 0.125 mg PO DAILY #30 tab predniSONE [Prednisone*] 20 mg PO BID #25 tab Calcium Carbonate [Tums Regular*] 500 mg PO QID PRN #120 tab PRN Reason: Indigestion Followup: NONE,NONE [Primary Care Provider] -
== END 2022-02-07 18:09 | disposition home or self-care (01) | DRG 871 ==
LOC: ER 10:45 → ERHOLD 13:51 → 3RD-ICU 21:17 → 2ND 02-03 15:45 → 4TH 02-06 13:44
PROVIDERS: ADMIT Internal Medicine; ATTEND Internal Medicine
DX: A41.9 Sepsis, unspecified organism (principal); J18.9 Pneumonia, unspecified organism; J96.22 Acute and chronic respiratory failure with hypercapnia; J96.21 Acute and chronic respiratory failure with hypoxia; I26.99 Other pulmonary embolism without acute cor pulmonale; I21.A1 Myocardial infarction type 2; J44.0 Chronic obstructive pulmonary disease with (acute) lower respiratory infection; J44.1 Chronic obstructive pulmonary disease with (acute) exacerbation; R65.20 Severe sepsis without septic shock; N18.2 Chronic kidney disease, stage 2 (mild); E11.9 Type 2 diabetes mellitus without complications; I48.0 Paroxysmal atrial fibrillation; I07.1 Rheumatic tricuspid insufficiency; Z20.822 Contact with and (suspected) exposure to COVID-19
CPT/HCPCS: 36415; 71045; 71275; 80048; 80076; 82805; 82947; 83036; 83605; 83735; 83880; 84100; 84145; 84443; 84484; 85025; 85610; 85730; 87811; 93005; 93306; 93970; 94660; 94760; 96365; 96367; 96372; 96375; 97110; 97116; 97161; 97530; 99285; J0456; J1940; J2920; J2930; J3475; J7050; J7512; Q9967

== ENCOUNTER 2024-07-16 06:28 | Day surgery (SDC) | payer OTHER ==
[2024-07-14 09:26] LABS: Absolute Eosinophils 0.1 K/uL (0-0.5); Absolute Lymphocytes (CBC) 1.2 K/uL (0.7-4.9); Absolute Monocytes 0.5 K/uL (0.1-1.3); Absolute Neutrophil 2.8 K/uL (1.8-8.0); Basophils % 0.5 % (0-1.3); Eosinophils % 1.8 % (0-4.4); Hemoglobin 9.1 g/dL (12.0-15.0); MCHC 32.4 g/dL (32.0-36.0); MCV 92.5 fL (80-100); MPV 8.6 fL (7.6-11.3); Monocytes % 10.9 % (3.3-12.3); Neutrophils % 60.8 % (41.7-73.7); Platelets 459 thou/uL (152-406); RBC Red Blood Cell Count 3.03 M/uL (3.86-4.86); Red Cell Distribution Width 15.2 % (12.1-15.2)
[2024-07-14 09:38] LABS: Anion Gap 7.7 mEq/L (5.0-15.0); Potassium 4.7 mEq/L (3.5-5.1)
[2024-07-14 09:42] LABS: PT Prothrombin Time 12.9 SECONDS (9.4-12.5); PTT, Activated Partial Thromb 36.7 SECONDS (24.3-36.9); Protime INR 1.23
[2024-07-16] MEDS ORDERED: LIDOCAINE 1% MPF 5 ML VIAL ONE (07:29)
[2024-07-16] MEDS ORDERED: propofoL 200 MG/20 ML VIAL IV ONE ×2 (07:29→08:34)
[2024-07-16] MEDS: NA CHLORIDE 0.9% 1,000 ML ONE (07:30)
[2024-07-16 08:09] VITALS: O2SAT 100
[2024-07-16] MEDS ORDERED: EPHEDRINE SULF 50 MG/ML VIAL ONE (08:22)
[2024-07-16 10:34] VITALS: BP 113/60; TEMP 98.2
--- NOTE | 2024-07-16 12:35 | EKG ---
Test Date: 2024-07-14 Test Time: 09:58:04 Musical Performer: CHELSEA MEASUREMENT RESULTS: Intervals: Rate: 64 [place]: 192 QRSD: 82 QT: 388 QTc: 400 [place]: P: 86 [place]: 192 QRS: 75 T: 85 INTERPRETIVE STATEMENTS: Normal sinus rhythm Nonspecific ST and T wave abnormality Abnormal ECG Compared to ECG 02/01/2022 13:17:50 Sinus tachycardia no longer present Ventricular premature complex(es) no longer present Atrial abnormality no longer present ST (T wave) deviation still present Electronically Signed On 07-16-24 12:31:50 POLICE LIAISON by Jose Garcia
== END 2024-07-16 10:22 | disposition home or self-care (01) ==
LOC: OR 06:28
PROVIDERS: ATTEND Internal Medicine Gastroenterology
PROC: 0DB88ZX Excision of Small Intestine, Via Natural or Artificial Opening Endoscopic, Diagnostic (ICD-10-PCS; 2024-07-16)
PROC: 0DBC8ZX Excision of Ileocecal Valve, Via Natural or Artificial Opening Endoscopic, Diagnostic (ICD-10-PCS; principal; 2024-07-16 08:00)
PROC: 0DB68ZX Excision of Stomach, Via Natural or Artificial Opening Endoscopic, Diagnostic (ICD-10-PCS; 2024-07-16 08:00)
DX: D50.9 Iron deficiency anemia, unspecified (principal); R11.0 Nausea; K64.8 Other hemorrhoids; K30 Functional dyspepsia; K44.9 Diaphragmatic hernia without obstruction or gangrene; K29.50 Unspecified chronic gastritis without bleeding; K63.5 Polyp of colon; Z86.0100 Personal history of colon polyps, unspecified
CPT/HCPCS: 45380; 43239; 93005; 85025; 80048; 36415; 88312; 85610; 82947 ×2; 88305; 85730; J2704; J2003; J7030